=== PATIENT | female | born 1950 | race Hispanic/Latino ===

== ENCOUNTER → 2022-09-11 | Outpatient (CLI) | payer MEDICARE, BC ==
[~2022-09-11] MED LIST: AMLO10TA4 PO; BENA40TA92 PO; BRIM5DRO11 OU; BRIN10DR OU; CLON0.2T PO; GLIP10TA9 PO; LATA2.5D15 OU; METO5 PO
== END | disposition home or self-care (01) ==
LOC: RAH 09:56
PROVIDERS: ATTEND Family Medicine
DX: Z12.31 Encounter for screening mammogram for malignant neoplasm of breast (principal)
CPT/HCPCS: 77067

== ENCOUNTER 2023-01-13 11:17 | Emergency (ER) | payer MEDICARE, BC ==
[~2023-01-13] VITALS: Ht 157.5 cm; Wt 90.7 kg
[2023-01-13 11:20] VITALS: BP 153/95
== END 2023-01-13 12:16 | disposition left against medical advice (07) ==
LOC: EDH 11:17
DX: M54.50 Low back pain, unspecified (principal); Z53.21 Procedure and treatment not carried out due to patient leaving prior to being seen by health care provider
CPT/HCPCS: 99281